=== PATIENT | male | born 1945 | race African-American/Black ===

== ENCOUNTER → 2018-09-26 | Outpatient (CLI) | payer OTHER ==
--- NOTE | 2018-09-27 12:24 | SLEEP ---
DATE OF STUDY: 09/26/2018 ATTENDING PHYSICIAN: Dr. Francesco Jack. The patient is a 73-year-old who weighs 375 pounds with a BMI of 53. The patient's Wilbur[place] score was 7. The patient underwent diagnostic sleep study performed at [facility]. During the night study, the patient spent 427 minutes in bed and slept for 354 minutes with a sleep efficiency of 83%. Sleep latency was 22 minutes with a REM latency of 86 minutes. Overall sleep architecture showed increased stage 1 and stage 2 sleep, absent slow wave and reduced REM sleep. During the night of study, the patient had 5 obstructive apneas, no mixed or central apneas and 152 hypopneas. The patient's apnea hypopnea index was 27 per hour with a supine index of 27 per hour and a REM index of 36 per hour. EKG monitoring revealed an average heart rate of 73 beats per minute and no arrhythmias observed. PLMS were not seen. Nocturnal oximetry study revealed a mean oxygen saturation of 92% with the lowest of 84%. 16% of the time oxygen saturation remained between 80% and 89%. The patient should return to the sleep lab for CPAP titration. IMPRESSION: 1. Moderate sleep apnea-hypopnea syndrome with worsening during REM sleep. Total apnea-hypopnea index of 27 per hour with a REM apnea-hypopnea index of 36 per hour. 2. Nocturnal hypoxia secondary to obstructive sleep apnea. 3. No clinically significant periodic limb movements of sleep. RECOMMENDATIONS: 1. The patient should return to the sleep lab for CPAP titration study. 2. Once the patient is optimally treated with CPAP, then follow up in 4-6 weeks to assess compliance with CPAP and to document clinical improvement. 3. Weight loss is strongly advised. 4. Avoid [employer] depressants. 5. Cautioned regarding driving until symptoms of sleep apnea have resolved with the use of CPAP. CYDNEY MONTEIRO MD DR: ROBIN/slava JOB#: [id number] / [id number] FRANCESCO Burns MD
== END | disposition home or self-care (01) ==
LOC: SLPLAB 19:04
PROVIDERS: ATTEND Family Medicine
DX: G47.33 Obstructive sleep apnea (adult) (pediatric) (principal); G47.34 Idiopathic sleep related nonobstructive alveolar hypoventilation
CPT/HCPCS: 95810